=== PATIENT | female | born 1965 | race African-American/Black ===

== ENCOUNTER 2019-08-05 12:22 | Observation (INO) ==
[2019-08-05 13:29] LABS: Basophils % 0.3 % (0.0-0.8); Eosinophils # 0.3 10*3/uL (0.0-0.87); Eosinophils % 2.9 % (0.00-10.9); Hematocrit 37.6 VOL% (35.7-47.0); Hemoglobin 12.3 GM/DL (12.0-16.0); Immature Granulocytes % 0.3 %; Immature Granulocytes Absolute 0.03 #; Lymphocytes # 3.3 10*3/uL (1.4-4.0); Lymphocytes % 35.3 % (21.3-54.2); Mean Corpuscular HGB Conc 32.7 GM/DL (32-36); Mean Corpuscular Volume 89.5 FL (87-102); Mean Platelet Volume 10.9 FL (9.6-12.0); Monocytes % 5.1 % (1.7-12.7); Neutrophils % 56.1 % (38.7-73.9); Platelet Count 248 T/CUMM (130-400); Red Cell Distribution Width 12.5 % (9.3-17.3); White Blood Count 9.4 T/CUMM (4-12)
[2019-08-05] MEDS ORDERED: KETOROLAC 30 MG/1 ML VIAL IV STA (13:40)
[2019-08-05] MEDS ORDERED: ONDANSETRON 4 MG/2 ML VIAL IV STA (13:40)
[2019-08-05] MEDS ORDERED: ASPIRIN 325 MG TABLET PO STA (13:40)
[2019-08-05] MEDS ORDERED: NITROGLYCERIN 2% OINT 1 INCH/GM PACK TOP STA (13:40)
[2019-08-05 13:46] LABS: Calcium 9.3 MG/DL (8.5-10.1); Osmolality,Calculated 278.3 MOS/KG (273-304)
[2019-08-05 14:31] LABS: PT Patient Result 10.5 SECS (9.6-12.2)
[2019-08-05 14:34] LABS: Albumin 3.6 G/DL (3.4-5.0); Bilirubin,Total 0.4 MG/DL (0.2-1.0); Osmolality,Calculated 274.5 MOS/KG (273-304); Total Protein 7.6 G/DL (6.4-8.3)
[2019-08-05] MEDS ORDERED: NICOTINE 21 MG/24 HR PATCH TRANSDERM PRN (14:55)
[2019-08-05] MEDS ORDERED: ONDANSETRON 4 MG/2 ML VIAL IV PRN (14:55)
[2019-08-05] MEDS ORDERED: ACETAMINOPHEN 325 MG TABLET PO PRN (14:55)
[2019-08-05] MEDS ORDERED: NITROGLYCERIN SL 0.4 MG TABLET SL PRN (14:58)
[2019-08-05] MEDS ORDERED: ENOXAPARIN 40 MG/0.4 ML SYRINGE SUBCUT SCH (15:00)
[2019-08-05 15:28] LABS: Risk Ratio 3.36; Thyroid Stimulating Hormone 0.958 uIU/ml (0.358-3.74); VLDL CHOLESTEROL 51.2 MG/DL
[2019-08-05] MEDS: METOPROLOL TARTRATE 25 MG TABLET PO SCH (20:14)
[2019-08-06 04:51] LABS: Basophils % 0.5 % (0.0-0.8); Eosinophils # 0.4 10*3/uL (0.0-0.87); Eosinophils % 4.4 % (0.00-10.9); Hematocrit 34.1 VOL% (35.7-47.0); Immature Granulocytes % 0.4 %; Immature Granulocytes Absolute 0.03 #; Lymphocytes # 2.6 10*3/uL (1.4-4.0); Lymphocytes % 33.2 % (21.3-54.2); Mean Corpuscular HGB Conc 32.3 GM/DL (32-36); Mean Platelet Volume 11.6 FL (9.6-12.0); Neutrophils % 55.5 % (38.7-73.9); Platelet Count 215 T/CUMM (130-400); Red Blood Count 3.79 MC/CUMM (3.8-5.5); Red Cell Distribution Width 12.3 % (9.3-17.3); White Blood Count 7.9 T/CUMM (4-12)
[2019-08-06 05:15] LABS: Calcium 8.7 MG/DL (8.5-10.1); Osmolality,Calculated 280.3 MOS/KG (273-304)
[2019-08-06 08:20] VITALS: BP 134/56
[2019-08-06] MEDS ORDERED: ASPIRIN CHEW 81 MG TABLET PO SCH (09:00)
[2019-08-06] MEDS: METOPROLOL TARTRATE 25 MG TABLET PO SCH (09:00)
[2019-08-06] MEDS ORDERED: PANTOPRAZOLE 40 MG TABLET PO SCH (09:59)
[2019-08-06] MEDS ORDERED: ACETAMINOPHEN 325 MG TABLET PO SCH (10:00)
[2019-08-06] MEDS ORDERED: GABAPENTIN 100 MG CAPSULE PO SCH (10:01)
== END 2019-08-06 11:42 | disposition home or self-care (01) ==
LOC: N.ED 12:22 → N.EDINP 12:22 → N.TELES 15:11
PROVIDERS: ADMIT Internal Medicine; ATTEND Internal Medicine